=== PATIENT | male | born 1970 | race Caucasian/White ===

== ENCOUNTER 2024-07-01 21:05 | Emergency (ER) | payer OTHER, SELFPAY ==
[2024-07-01 21:07] VITALS: BP 163/90
[2024-07-01] MEDS: DELTASONE 50 MG PO (21:46)
[2024-07-01] MEDS: DUONEB 3 ML INH (21:46)
--- NOTE | 2024-07-01 22:49 | ED.GENMED ---
History of Present Illness
General
Chief Complaint: Breathing Problem
Source: patient
Exam Limitations: none
Time Seen by Provider: 07/01/24 21:30
History of Present Illness
History of Present Illness:
54-year-old male with history of asthma presents with progressively worsening shortness of breath over the past couple days. He has been coughing. He states that tight to breathe. He has been using his inhaler which has not helped much. He
denies a fever. He is not a smoker. He denies hemoptysis. No chest pain. No other complaints
Past History
Past History
ED Past Medical History: Other (Gout)
ED Past Surgical History: None
Social History
Tobacco: Non-smoker
Alcohol: None
Drug: None
Living: with family
Employment: Employed
Phy Exam
Physical Exam
Physical Exam:
General: Well-appearing male no acute respiratory distress
HEENT: Normocephalic atraumatic
Heart: Regular rate and rhythm no murmurs
Lungs: Expiratory wheeze bilaterally
Extremities: No cyanosis or edema
Skin: Warm
Scores
Heart Failure Risk
Heart Failure Risk Score: Not Applicable
Course
Orders/Labs/Results
Orders:
Orders
07/01/24 21:11
Electrocardiogram (*1) Urgent
Reason for Study: Shortness of Breath
EKG- Treatment ONCE
CXR2 [CR Chest - 2 Views ] Urgent
Comment:
Reason For Exam: shortness of breath and a cough
07/01/24 21:40
Ipratropium/Albuterol Sulfate [Duoneb] 3 ml INH R NOW STA
Prednisone [Deltasone] 50 mg PO NOW STA
Vital Signs
Initial and Last Documented VS:
Initial Vital Signs
Temp Pulse Resp BP Pulse Ox
98.0 F 88 20 163/90 97
07/01/24 21:07 07/01/24 21:07 07/01/24 21:07 07/01/24 21:07 07/01/24 21:07
Last Documented Vital Signs
Temp Pulse Resp BP Pulse Ox
98.0 F 81 19 145/76 97
07/01/24 21:07 07/01/24 23:41 07/01/24 23:41 07/01/24 23:41 07/01/24 23:41
MDM/Problems Addressed
Differential Diagnosis Includes:
Difficulty breathing. Question flare of asthma versus bronchitis versus pneumonia. Do not suspect PE without any risk factors or pain. Vital signs are stable. Check chest x-ray for pneumonia. DuoNeb and steroids ordered
*Critical Care Note
Total Time (30-74mins, 75-104mins- exclusive of procedures): Not Applicable
Update Note
Update Note:
Chest x-ray negative. Suspect underlying acute bronchitis. Patient with mild relief after nebulizer treatment here. Will prescribe prednisone and nebulizer to use at home. Stable for discharge. No indication for any antibiotics.
ED Attending Note
-
Portions of this chart may have been created with voice recognition software.� Occasional wrong word or��sound alike� substitutions may have occurred due to the inherent limitations of voice recognition software.
Discharge Plan
Departure
Patient Disposition: Home (Routine Discharge)
Date of Disposition: 07/01/24
Time of Disposition: 23:49
Patient with high blood pressure during this ER visit?: No
Discharge Problem:
Acute bronchitis
Instructions: Acute Bronchitis, Adult (DC)
Prescriptions:
New
prednisone 20 mg tablet
40 mg PO DAILY 5 Days Qty: 10 0RF
albuterol sulfate 2.5 mg /3 mL (0.083 %) solution for nebulization
2.5 mg inhalation TID 7 Days Qty: 63 0RF
No Action
ibuprofen 200 mg Tablet
400 mg PO Q6H PRN (Reason: pain)
Referrals:
NONE,* [Family Provider] -
Activity Restrictions/Additional Instructions:
Use steroid as directed. Use nebulizer as needed. Return if worse otherwise follow-up with your family doctor
Interventions
Interventions:
*Risk Screen - Suicide Last Done: 07/01/24 21:06
*General Assessment Last Done: 07/01/24 21:10
*Neglect/Abuse Screening Last Done: 07/01/24 23:42
ED- Fall Risk Assessment Last Done: 07/01/24 22:02
*ED COVID-19 Vaccine History Last Done: 07/01/24 23:42
ED- Cardiac Assessment Last Done: 07/01/24 22:02
ED- Pulmonary Assessment Last Done: 07/01/24 22:02
Discharge Date and Time
Print Language: [facility]
[2024-07-01 23:41] VITALS: BP 145/76
[2024-07-01 23:55] VITALS: BP 145/76
== END 2024-07-01 23:56 | disposition home or self-care (01) ==
LOC: EMR 21:05
PROVIDERS: EMERGENCY PHYSICIAN Emergency Medicine
DX: J20.9 Acute bronchitis, unspecified (principal); J45.909 Unspecified asthma, uncomplicated; M10.9 Gout, unspecified
CPT/HCPCS: 99283; 94640; 71046; 93005